=== PATIENT | female | born 1930 | race Caucasian/White ===

== ENCOUNTER 2021-07-05 15:08 | Emergency (ER) | payer OTHER ==
--- OUTSIDE RECORDS SUMMARY | 2021-07-05 15:12 | XMS REPORT | Continuity of Care Document ---
:1930 Author Organization [facility] t Address [address] [place] [address] [address]. [address] [place] [address] Care Team Providers Name Role Phone Chilo Jose Primary Care Physician STEPHEN, A Attending Clinician Unavailable Stephen BRINK, A Attending Clinician Doctor Unassigned, Name Attending Clinician Unavailable Pob, Lab Main Attending Clinician Unavailable Maxim OLIVARES Attending Clinician Unavailable CARLOTA Attending Clinician Unavailable STEPHEN, A Admitting Clinician Unavailable Stephen BRINK, A Admitting Clinician Payers Payer Name Policy Type Policy Number Effective Date Expiration Date S sarah [employer] MANAGED [id number] 2020 MEDICARE PPO-ELINOR 00:00:00 Problems Condition Condition Condition Status Onset Resolution Last Treating Co mments Source Name Details Category Date Date Treatment Clinician Date History of History of Problem Resolve Univers hypothyroi hypothyroi HL7.CCDAR2 d ity of dism dism [place] [facility] Osteoarthr Osteoarthr Problem Active U nivers osis, osis, HL7.CCDAR2 [place] primary[place] Physic i knee knee ans Prepatella Prepatella Problem Active U nivers r bursitis r bursitis HL7.CCDAR2 ity of of left of left [place] knee knee Physici ans Neuropathy Neuropathy Problem Active U nivers HL7.CCDAR2 ity of [place] [facility] Neuropathy Neuropathy Problem Active U nivers of right of right HL7.CCDAR2 it y of lower lower [place] extremity extremity Phys ici ans Allergies, Adverse Reactions, Alerts Allergy Allergy Status Severity Reaction(s) Onset Inactive Treating Comm ents Source Name Type Date Date Clinician PENICILL Drug Active Med Hives 2020-06 Univers INS Class 1-29 ity of 00:00: [place] 00 Medical Branch SULFA Drug Active Med Hives 2020-06 Univers (SULFONA Class 1-29 ity of MIDE 00:00: [place] ANTIBIOT 00 Medical ICS) Branch LATEX DRUG Active ITCHING 2020-06 Univers INGREDI 07-27 ity of 00:00: [place] 00 Medical Branch TETRACYC DRUG Active Hives 2020-06 Univers LINE INGREDI 07-27 ity of 00:00: [place] 00 Medical Branch Latex Propensi Active Itching 2020-06 Univers ty to 07-27 ity of adverse 00:00: [place] reaction 00 Medical s Branch Penicill Drug Active Hives 2020-06 Univers ins Allergy 07-27 ity of 00:00: [place] 00 Medical Branch Sulfa Propensi Active Hives 2020-06 Univers (Sulfona ty to 07-27 ity of mide adverse 00:00: [place] Antibiot reaction 00 Medica l ics) s Branch Tetracyc Propensi Active Hives 2020-06 Univer s line ty to 07-27 ity of adverse 00:00: [place] reaction 00 Medical s Branch Benadryl drug Active Univers allergy [place] of [place] [facility] Benadryl drug Active Univers CAPS allergy [place] [facility] Penicill drug Active Univers ins allergy [place] [facility] NO KNOWN Drug Active Univers ALLERGIE Class ity of S [facility] Sulfa drug Active Univers Drugs allergy [place] [facility] Tetracyc drug Active Univers lines allergy [place] [facility] Social History Social Habit Start Date Stop Date Quantity Comments Source Exposure to Not sure [facility] SARS-CoV-2 (event) Medica l Branch Tobacco use and 2021-05-27 2021-05-27 Never used [facility] exposure 00:00:00 00:00:00 Medical Branch Sex Ass[birth year] At [birth year] [facility] 00:00:00 00:00:00 Medical Branch Smoking Status Start Date Stop Date Source Unknown if ever smoked [facility] [place] Never smoker [facility] [place] Medications Ordered Filled Start Stop Current Ordering Indication Dosage Frequency Signature Comments Components Source Medication Medication Date Date Medication? Clinician (SIG) Name Name water for 2020-06 Yes PRN, Univers irrigation 2- Starting ity o f irrigation 21:04: on Wed [place] solution 00 05/29/21 at Medic al 1504, Branch Until Discontinu ed, Routine, Intra-op sodium 2020-06 Yes PRN, Univers chloride 2- Starting ity of (NS) 21:04: on Wed [place] injection 00 05/29/21 at Medi claribel 1504, Branch Until Discontinu ed, Routine, Intra-op neomycin-po 2020-06 Yes PRN, [facility] [place] [facility] lymyxin-dex 2- Starting ity of amethasone 21:04: on Wed [place] (MAXITROL) 00 05/29/21 at Med ical 3.5 1504, Branch mg/g-10,000 Until unit/g-0.1 Discontinu % ed, ophthalmic Routine, ointment Intra-op water for 2020-06- No PRN, Univers irrigation 2-05-30 Starting ity of irrigation 21:04: 00:30 [place] Wed [place] solution 00 :49 05/29/21 at Medic al 1504, Branch Until Thu05/29/21 at 1830, Routine, Intra-op sodium 2020-06- No PRN, Univers chloride 2-05-30 Starting ity of (NS) 21:04: 00:30 on Wed [place] injection 00 :49 05/29/21 at Medi claribel 1504, Branch Until Thu05/29/21 at 1830, Routine, Intra-op neomycin-po 2020-06- No PRN, [facility] [place] [facility] lymyxin-dex 2-05-30 Starting ity of amethasone 21:04: 00:30 [place] Wed [place] (MAXITROL) 00 :49 05/29/21 at Med ical 3.5 1504, Branch mg/g-10,000 Until Wed unit/g-0.1 05/29/21 at % 1830, ophthalmic Routine, ointment Intra-op Hyaluronida 2020-06 Yes PRN, Univer s se, Human 2- Starting ity of Recomb. 21:03: on Thu [place] (HYLENEX) 00 05/29/21 at [facility] claribel injection 1503, Branch Until Discontinu ed, Routine, Intra-op Hyaluronida 2020-06- No PRN, Unive rs se, Human 07-30 Starting ity o f Recomb. 21:03: 00:30 on Thu (HYLENEX) 00 :49 05/29/21 at Medi claribel injection 1503, Branch Until Thu05/29/21 at 1830, Routine, Intra-op eye block 2020-06 Yes PRN, Univers syringe 07-30 Starting ity o f mL 21:02: on Thu 00 05/29/21 at Medical 1502, Branch Until Discontinu ed, Intra-op EPINEPHrine 2020-06 Yes PRN, Univer s 1:1,000 (07-30 Starting ity o f mg/mL) 21:02: on Thu (ADRENALIN) 00 05/29/21 at Wy dical injection 1502, Branch Until Discontinu ed, Routine, Intra-op DUOVISC 2020-06 Yes PRN, Univers (DUOVISC 07-30 Starting ity of VISCO 21:02: on Thu ELASTIC) 3 00 05/29/21 at Med ical %-4 %(0.5 1502, Branch mL) 1 % Until (0.55 mL) Discontinu intraocular ed, injection Routine, Intra-op eye block 2020-06- No PRN, Univers syringe 11 07-30 Starting ity of mL 21:02: 00:30 on Thu 00 :49 05/29/21 at Medical 1502, Branch Until Thu05/29/21 at 1830, Intra-op EPINEPHrine 2020-06- No PRN, Unive rs 1:1,000 (07-30 Starting ity of mg/mL) 21:02: 00:30 on Thu (ADRENALIN) 00 :49 05/29/21 at Me dical injection 1502, Branch Until Thu05/29/21 at 1830, Routine, Intra-op DUOVISC 2020-06- No PRN, Univers (DUOVISC 07-30 Starting ity of VISCO 21:02: 00:30 on Thu ELASTIC) 3 00 :49 05/29/21 at Med ical %-4 %(0.5 1502, Branch mL) 1 % Until Wed (0.55 mL) 05/29/21 at intraocular 1830, injection Routine, Intra-op dexamethaso 2020-06 Yes PRN, Univer s ne 07-30 Starting ity of (DECADRON 21:01: on Wed [place] PHOSPHATE) 00 05/29/21 at [facility] ical injection 1501, Branch Until Discontinu ed, Routine, Intra-op dexamethaso 2020-06- No PRN, Unive rs ne 07-30 Starting ity of (DECADRON 21:01: 00:30 on Wed [place] PHOSPHATE) 00 :49 05/29/21 at Med ical injection 1501, Branch Until Thu05/29/21 at 1830, Routine, Intra-op ceFAZolin 2020-06 Yes PRN, Univers (ANCEF) 07-30 Starting ity of injection 20:34: on Wed [place] 00 05/29/21 at Medical 1434, Branch Until Discontinu ed, DIAMOND, Intra-op ceFAZolin 2020-06- No PRN, Univers (ANCEF) 07-30 Starting ity of injection 20:34: 00:30 on Wed [place] 00 :49 05/29/21 at Medical 1434, Branch Until Thu05/29/21 at 1830, DIAMOND, Intra-op carbachoL 2020-06 Yes PRN, Univers (MIOSTAT) 07-30 Starting ity of 0.01 % 20:33: on Thu [place] intraocular 00 05/29/21 at Wy dical injection 1433, Branch Until Discontinu ed, Routine, Intra-op balanced 2020-06 Yes PRN, Univers salt irrig 07-30 Starting ity o f soln comb1 20:33: on Thu [place] (BSS PLUS) 00 05/29/21 at [facility] ical ophthalmic 1433, Branch solution Until 500 mL bag Discontinu ed, Routine, Intra-op carbachoL 2020-06- No PRN, Univers (MIOSTAT) 07-30 Starting ity o f 0.01 % 20:33: 00:30 on Thu [place] intraocular 00 :49 05/29/21 at Wy dical injection 1433, Branch Until Thu05/29/21 at 1830, Routine, Intra-op balanced 2020-06- No PRN, Univers salt irrig 07-30 Starting ity of soln comb1 20:33: 00:30 [place] Wed [place] (BSS PLUS) 00 :49 05/29/21 at [facility] ica ophthalmic 1433, Branch solution Until Thu 500 mL bag 05/29/21 at 1830, Routine, Intra-op cyclopent 2020-06- No .5mL 0.5 mL, Univ ers 1%-tropic 07-30 Left Eye, ity of 1%-phenyl 19:15: 19:19 ONCE, 1 [place] 2.5%-ketor 00 :00 dose, On Medic al 0.5% Thu Branch (MYDRIATIC 05/29/21 at #5) 1315, ophthalmic Routine, solution DSU Pre-op syringe 0.5 mL lactated 2020-06- No 1000mL at 42 Unive rs ringers IV 07-30 mL/hr, ity of infusion 19:15: 19:19 1,000 mL, [place] 1,000 mL 00 :00 IV Medical Infusion, Branch ONCE, 1 dose, On Thu05/29/21 at 1315, Routine, DSU Pre-op cyclopent 2020-06- No .5mL 0.5 mL, Univ ers 1%-tropic 07-30 Left Eye, ity of 1%-phenyl 19:15: 19:19 ONCE, 1 [place] 2.5%-ketor 00 :00 dose, On Medic al 0.5% Thu Branch (MYDRIATIC 05/29/21 at #5) 1315, ophthalmic Routine, solution DSU Pre-op syringe 0.5 mL lactated 2020-06- No 1000mL at 42 Unive rs ringers IV 07-30 mL/hr, ity of infusion 19:15: 19:19 1,000 mL, Ken as 1,000 mL 00 :00 IV Medical Infusion, Branch ONCE, 1 dose, On Thu05/29/21 at 1315, Routine, DSU Pre-op Levothyroxi 2020-06 Yes Take by Un ronnie ne 88 mcg 2-01 mouth ity of capsule 16:30: every [place] [id number] morning. Medical Branch Levothyroxi 2020-06 Yes Take by Un ronnie ne 88 mcg 2-01 mouth ity of capsule 16:30: every [place] [address] morning. Medical Branch Levothyroxi 2020-06 Yes Take by Un ronnie ne 88 mcg 2-01 mouth ity of capsule 16:30: every [place] [address] morning. Medical Branch Clindamycin Clindamycin 2012-06 Yes YANE TAKE 2 Univers HCl - 300 HCl - 300 1-05 AMBROSIO Sargent CAPSULES 1 ity of MG Oral MG Oral 00:00: HOUR PRIOR [place] Capsule Capsule 00 TO DENTAL Phys ici APPOINTMEN ans T. Levothyroxi Levothyroxi Yes U nivers ne Sodium ne Sodium ity o f 88 MCG Oral 88 MCG Oral [place] Tablet Tablet Physici ans Flax OIL Flax OIL Yes Univers [facility] [facility] [place] [facility] ICaps Oral ICaps Oral Yes Uni vers Capsule Capsule ity of [facility] ans Ringers Ringers Yes Univers Irrigation Irrigation ity of [facility] Physici ans Barley Barley Yes Univers Grass POWD Grass POWD ity of [facility] ans Co Q 10 Co Q 10 Yes Univers CAPS CAPS ity of [facility] ans Vitamin D-3 Vitamin D-3 Yes U nivers TABS TABS ity of [facility] ans Fiber CAPS Fiber CAPS Yes Uni vers ity of [place] [facility] ans Calcium Calcium Yes Univers TABS TABS ity of [facility] ans Glucosamine Glucosamine Yes U nivers CAPS CAPS ity of [facility] ans Multiple Multiple Yes Univers Vitamins Vitamins ity of Oral Tablet Oral Tablet [place] Phys[place] ans Levo-T 88 Levo-T 88 Yes Unive rs MCG Oral MCG Oral ity of Tablet Tablet [place] [facility] ans Immunizations Ordered Filled Immunization Date Status Comments [facility] e Immunization Name Name SARS-COV-2 COVID-19 2021-04-19 Completed Unive rsity of PFIZER VACCINE 00:00:00 [place] [facility] SARS-COV-2 COVID-19 2021-04-19 Completed Unive rsity of PFIZER VACCINE 00:00:00 [facility] SARS-COV-2 COVID-19 2021-04-19 Completed Unive rsity of PFIZER VACCINE 00:00:00 [facility] SARS-COV-2 COVID-19 2020-08-23 Completed Unive rsity of PFIZER VACCINE 00:00:00 [facility] SARS-COV-2 COVID-19 2020-08-23 Completed Unive rsity of PFIZER VACCINE 00:00:00 [facility] SARS-COV-2 COVID-19 2020-08-23 Completed Unive rsity of PFIZER VACCINE 00:00:00 [facility] SARS-COV-2 COVID-19 2020-08-23 Completed Unive rsity of PFIZER VACCINE 00:00:00 [facility] SARS-COV-2 COVID-19 2020-07-24 Completed Unive rsity of PFIZER VACCINE 00:00:00 [facility] SARS-COV-2 COVID-19 2020-07-24 Completed Unive rsity of PFIZER VACCINE 00:00:00 [facility] SARS-COV-2 COVID-19 2020-07-24 Completed Unive rsity of PFIZER VACCINE 00:00:00 [facility] SARS-COV-2 COVID-19 2020-07-24 Completed Unive rsity of PFIZER VACCINE 00:00:00 [facility] Vital Signs Vital Name Observation Time Observation Value Comments Source Heart rate 2021-05-29 22:19:00 65 /min [facility] Respiratory rate 2021-05-29 22:19:00 25 /min Univ ersity of [facility] Oxygen saturation in 2021-05-29 22:19:00 100 /min [facility] Arterial blood by [facility] Pulse oximetry Branch Systolic blood 2021-05-29 22:16:00 179 mm[Hg] Univer sity of pressure [facility] Diastolic blood 2021-05-29 22:16:00 84 mm[Hg] Unive rsity of pressure [facility] Body temperature 2021-05-29 22:07:00 36.39 [facility] Body height 2021-05-27 16:11:00 152.4 cm [facility] Body weight 2021-05-27 16:11:00 57.7 kg [facility] BMI 2021-05-27 16:11:00 24.84 kg/m2 [facility] Systolic blood 2021-05-29 19:17:00 168 mm[Hg] Univer sity of pressure [facility] Diastolic blood 2021-05-29 19:17:00 63 mm[Hg] Unive rsity of pressure [facility] Heart rate 2021-05-29 19:17:00 74 /min [facility] Body temperature 2021-05-29 19:17:00 37.11 Radha [facility] Respiratory rate 2021-05-29 19:17:00 18 /min [facility] Oxygen saturation in 2021-05-29 19:17:00 100 /min [facility] Arterial blood by [facility] Pulse oximetry Branch Body height 2021-05-27 16:11:00 152.4 cm [facility] Body weight 2021-05-27 16:11:00 57.7 kg [facility] BMI 2021-05-27 16:11:00 24.84 kg/m2 [facility] Procedures Procedure Date / Time Performing Source Performed Clinician PHACOEMULSIFICATION OF 2021-05-29 John Mitchell [facility] CATARACT WITH INTRAOCULAR 21:28:00 Macario Olivares LENS IMPLANT DAY SURGERY - ADC 2021-05-29 Doctor Unassigned, [facility] 06:01:00 [place] [facility] NOTICE OF PRIVACY PRACTICES 2021-05-20 Doctor Unassigned, [facility] 23:10:40 [place] [facility] NOTICE OF PRIVACY PRACTICES 2021-05-20 Doctor Unassigned, [facility] 23:10:40 [place] [facility] CONSENT/REFUSAL FOR DIAGNOSIS 2021-05-20 Doctor Unassigned, [facility] AND TREATMENT 23:09:13 [place] [facility] CONSENT/REFUSAL FOR DIAGNOSIS 2021-05-20 Doctor Unassigned, [facility] AND TREATMENT 23:09:13 [place] [facility] ASSIGNMENT OF BENEFITS 2021-05-20 Doctor Unassigned, [facility] 23:08:49 [place] [facility] ASSIGNMENT OF BENEFITS 2021-05-20 Doctor Unassigned, [facility] 23:08:49 [place] [facility] PHYSICIAN ORDERS 2021-05-20 Doctor Unassigned, [facility] 06:01:00 [place] [facility] PHYSICIAN ORDERS 2021-05-20 Doctor Unassigned, [facility] 06:01:00 [place] [facility] EXTERNAL PROVIDER RECORDS 2021-05-14 Doctor Unassigned, [facility] 06:01:00 [place] [facility] EXTERNAL PROVIDER RECORDS 2021-05-14 Doctor Unassigned, [facility] 06:01:00 [place] [facility] History of Knee Arthroplasty Uni versity [facility] Physicians History of Hysterectomy [facility]i [facility] [place] [facility] History of Ankle Surgery [facility] [place] [facility] Encounters Start End Encounter Admission Attending Care Care Encounter Source Date/Time Date/Time Type Type Clinicians Facility Department ID 2021-05-29 2021-05-29 Outpatient R [facility] OPH [id number] Univers 13:03:00 16:30:00 JOHN ity of [facility] 2021-05-29 2021-05-29 Hospital [facility] [id number] Univers 13:03:00 16:30:00 Encounter John RICHARDSON [id number] ity of [facility] [id number] [place] [id number] [facility] 071 Branch 2021-05-29 2021-05-29 Surgery [facility] [id number] Univers 15:01:00 15:42:00 John RICHARDSON [id number] ity of [place] [id number] SURGICAL [id number] [facility] 020 Branch 2021-05-29 2021-05-29 Orders Doctor RJ [id number] Univers 00:00:00 00:00:00 Only Unassigned, YOSEF [id number] ity of [place] [facility] [id number] [place] as [id number] [facility] 009 Branch 2021-05-20 2021-05-20 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 2020-08-23 2020-08-23 Outpatient R [facility] [id number] Univers 14:20:00 14:20:[id number] [facility] 2020-08-23 2020-08-23 Outpatient R MARSHALL [facility] [id number] Univers 14:20:00 14:20:[address] [facility] 2020-08-16 2020-08-16 Outpatient R [facility] [id number] Univers 14:20:00 14:20:[id number] [facility] 2020-08-16 2020-08-16 Outpatient R MARSHALL [facility] [id number] Univers 14:20:00 14:20:[address] [facility] 2020-08-14 2020-08-14 Outpatient R MARSHALL [facility] [id number] Univers 14:20:00 14:20:[id number] [facility] 2020-07-24 2020-07-24 Outpatient R MARSHALL [facility] [id number] Univers 13:20:00 13:20:[address] [facility] 2018-05-26 2018-05-26 Appointmen GONZALO VAN [facility] [id number] Univers 10:30:00 10:30:00 t; FRANCHESKA VAN, Orthopedics ity of [place] [place] [facility] Physici ans 2016-07-30 2016-07-30 Appointmen GONZALO VAN [facility] [id number] Univers 14:30:00 14:30:00 t; FRANCHESKA VAN, ity of [place] [place] [facility] Physici ans Results Test Description Test Time Test Comments Results Result Sourc e Comments [U] XRAY KNEE 3 2018-05-26 Images Universit y of VWS LEFT [id number] 11:07:00 acquired, not [place] reported on Physicians this accession number.
--- NOTE | 2021-07-05 16:09 | RAD REPORT ---
EXAM DESCRIPTION: CT - Head Brain Wo Cont - 07/05/2021 4:01 pm CLINICAL HISTORY: HEADACHE COMPARISON: No comparisons TECHNIQUE: All CT scans are performed using dose optimization technique as appropriate and may inclu de automated exposure control or mA/KV adjustment according to patient size. FINDINGS: No intracranial hemorrhage, hydrocephalus or extra-axial fluid collection.No areas of brai n edema or evidence of midline shift. The paranasal sinuses and mastoids are clear. The calvarium is intact. IMPRESSION: No acute intracranial abnormality.
--- NOTE | 2021-07-05 16:30 | ER ---
Nurse's Notes [facility] Name: Radha Zamudio Age: 89 yrs Sex: Female : 1930 Arrival Date: 07/05/2021 Time: 15:26 Bed 12 Private MD: Kevin Woo V Diagnosis: Laceration Chin without foreign body;Abrasion face Presentation: 07/05 15:37 Chief complaint: Patient states: i didn't pepper picker my feet and i fell and hit the tw2 concrete. i was looking at some chalk walk on the sidewalk and it got me. i take a baby aspirin. NO LOC. 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 Coronavirus screen: At this time, the client does not indicate any symptoms associated with coronavirus-19. Ebola Screen: Patient denies travel to an Ebola-affected area in the 21 days before illness onset. Initial Sepsis Screen: Does the patient meet any 2 criteria? No. Patient's initial sepsis screen is negative. Does the patient have a suspected source of infection? No. Patient's initial sepsis screen is negative. Risk Assessment: Do you want to hurt yourself or someone else? Patient reports no desire to harm self or others. Onset of symptoms was July 05, 2021. 15:37 Method Of Arrival: Ambulatory tw2 15:37 Acuity: ILIANA 4 tw2 Triage Assessment: 15:44 General: Appears in no apparent distress. Behavior is calm, cooperative, appropriate tw2 for age. Pain: Complains of pain in face abrasions. Historical: - Allergies: 15:43 PENICILLINS; tw2 15:43 Sulfa (Sulfonamide Antibiotics); tw2 15:43 TETRACYCLINES; tw2 15:43 Latex, Natural Rubber; tw2 - Home Meds: 15:43 levothyroxine 88 mcg/mL soln 1 mL once daily [Active]; aspirin 81 mg Oral chew 1 tab tw2 twice a week [Active]; - PSHx: 15:43 left knee replacement; hysterectomy; tw2 - Immunization history:: Client reports receiving the 2nd dose of the Covid vaccine, Flu vaccine is up to date. - Social history:: Smoking status: Patient denies any tobacco usage or history of. Screenin:51 Abuse screen: Denies threats or abuse. Denies injuries from another. Nutritional 5 screening: No deficits noted. Tuberculosis screening: No symptoms or risk factors identified. Fall Risk None identified. Primary Survey: 15:50 NO uncontrolled hemorrhage observed. A: Airway: patent. Breathing/Chest: Respiratory [facility] pattern: regular, Respiratory effort: spontaneous, Breath sounds: clear, Chest inspection: symmetrical rise and fall of the chest. Circulation: Cardiac rhythm: Pulses: palpable right radial artery and left radial artery. Skin color: pink, Skin temperature: warm. Disability Alert. Exposure/Environment: A warming method has been applied: A warm blanket has been provided to the patient. Reassessment Airway Airway Patent Breathing/Chest Respiratory pattern Regular Circulation Heart rhythm Sinus rhythm Disability Alert. Assessment: 15:49 General: Appears in no apparent distress. uncomfortable, well groomed, well developed, jh5 well nourished, Behavior is calm, cooperative, appropriate for age. Cardiovascular: No deficits noted. Respiratory: No deficits noted. GI: No deficits noted. Vital Signs: 15:37 BP 161 / 58; Pulse 77; Resp 18; Temp 97.6(TE); Pulse Ox 100% on R/A; Pain 3/10; tw2 ED Course: 15:26 Patient arrived in ED. am2 15:29 Kevin Woo MD is Private Physician. am2 15:43 Triage completed. tw2 15:44 Arm band placed on. tw2 15:46 Mila Edwards, KHOA is Primary Nurse. 5 15:52 Mainor Dominguez PA is PHCP. jr8 15:52 Farzaneh Morgan MD is Attending Physician. jr8 15:52 Patient has correct armband on for positive identification. Call light in reach. Side 5 rails up X 1. 16:02 CT Head Brain wo Cont In Process Unspecified. EDMS 16:29 Kevin Woo MD is Referral Physician. jr8 Administered Medications: 15:53 Drug: Lidocaine (1 %) 5 mg {Note: given via MD.} Route: Infiltration; [facility] Outcome: 16:30 Discharge ordered by . jr 16:41 Patient left the ED. [facility] Signatures: Dispatcher [employer] EDMS Mainor Dominguez PA PA 8 Elana Aggarwal RN RN tw2 Chika Villarreal am2 Mila Edwards RN RN jh5
--- NOTE | 2021-07-05 16:30 | EDPHYS ---
Physician Documentation [facility] [place] Name: Radha Zamudio Age: 89 yrs Sex: Female : 1930 Arrival Date: 07/05/2021 Time: 15:26 Bed 12 Private MD: Kevin Woo V ED Physician Farzaneh Morgan HPI: 07/05 16:25 This 89 yrs old Female presents to ER via Ambulatory with complaints of Fall Injury, jr8 Abrasion(s) - facial. 16:25 Details of fall: The patient fell from an upright position, while standing. Onset: The jr8 symptoms/episode began/occurred acutely, today. Associated injuries: The patient sustained injury to the head. Severity of symptoms: At their worst the symptoms were mild, in the emergency department the symptoms are unchanged. The patient has not experienced similar symptoms in the past. The patient has not recently seen a physician. 16:26 Patient stated that she tripped while walking hitting her chin and cheek. Denies LOC. jr8 Complains of mild pain to left cheek and laceration to chin. Denies Headache, neck pain, or dizziness . Historical: - Allergies: 15:43 PENICILLINS; tw2 15:43 Sulfa (Sulfonamide Antibiotics); tw2 15:43 TETRACYCLINES; tw2 15:43 Latex, Natural Rubber; tw2 - Home Meds: 15:43 levothyroxine 88 mcg/mL soln 1 mL once daily [Active]; aspirin 81 mg Oral chew 1 tab tw2 twice a week [Active]; - PSHx: 15:43 left knee replacement; hysterectomy; tw2 - Immunization history:: Client reports receiving the 2nd dose of the Covid vaccine, Flu vaccine is up to date. - Social history:: Smoking status: Patient denies any tobacco usage or history of. ROS: 16:26 Neck: Negative for injury, pain, and swelling, Cardiovascular: Negative for chest pain, jr8 palpitations, and edema, Respiratory: Negative for shortness of breath, cough, wheezing, and pleuritic chest pain, Abdomen/GI: Negative for abdominal pain, nausea, vomiting, diarrhea, and constipation, Back: Negative for injury and pain, MS/Extremity: Negative for injury and deformity, Neuro: Negative for headache, weakness, numbness, tingling, and seizure. 16:26 Skin: Positive for abrasion(s), laceration(s). Exam: 16:26 Constitutional: This is a well developed, well nourished patient who is awake, alert, jr8 and in no acute distress. Eyes: Pupils equal round and reactive to light, extra-ocular motions intact. Lids and lashes normal. Conjunctiva and sclera are non-icteric and not injected. Cornea within normal limits. Periorbital areas with no swelling, redness, or edema. ENT: Nares patent. No nasal discharge, no septal abnormalities noted. Tympanic membranes are normal and external auditory canals are clear. Oropharynx with no redness, swelling, or masses, exudates, or evidence of obstruction, uvula midline. Mucous membranes moist. Neck: Trachea midline, no thyromegaly or masses palpated, and no cervical lymphadenopathy. Supple, full range of motion without nuchal rigidity, or vertebral point tenderness. No Meningismus. Chest/axilla: Normal chest wall appearance and motion. Nontender with no deformity. No lesions are appreciated. Cardiovascular: Regular rate and rhythm with a normal S1 and S2. No gallops, murmurs, or rubs. Normal PMI, no JVD. No pulse deficits. Respiratory: Lungs have equal breath sounds bilaterally, clear to auscultation and percussion. No rales, rhonchi or wheezes noted. No increased work of breathing, no retractions or nasal flaring. Abdomen/GI: Soft, non-tender, with normal bowel sounds. No distension or tympany. No guarding or rebound. No evidence of tenderness throughout. Back: No spinal tenderness. No costovertebral tenderness. Full range of motion. Skin: small abrasions to bilateral anterior knees noted. No bleeding or laceration present MS/ Extremity: Pulses equal, no cyanosis. Neurovascular intact. Full, normal range of motion. Neuro: Awake and alert, GCS 15, oriented to person, place, time, and situation. Cranial nerves II-XII grossly intact. Motor strength 5/5 in all extremities. Sensory grossly intact. Cerebellar exam normal. Normal gait. 16:26 Head/face: Patient has small abrasion to chin and left cheek. 2 cm irregular shaped laceration noted to submental region. No active bleeding and no FB noted . Vital Signs: 15:37 BP 161 / 58; Pulse 77; Resp 18; Temp 97.6(TE); Pulse Ox 100% on R/A; Pain 3/10; tw2 Laceration: 16:26 Wound Repair of 2cm ( 0.8in ) subcutaneous laceration to chin. Irregularly shaped.. jr8 Distal neuro/vascular/tendon intact. Anesthesia: Local anesthetic administered with 2 mls of 1% lidocaine. Wound prep: Moderate cleansing with betadine, Wound explored moderately. Skin closed with 2 4-0 Prolene using interrupted sutures and sterile technique. Patient tolerated well. MDM: 15:52 Patient medically screened. jr8 16:26 Data reviewed: vital signs, nurses notes, radiologic studies, CT scan. Data jr8 interpreted: Pulse oximetry: on room air is 100 %. Interpretation: normal. Counseling: I had a detailed discussion with the patient and/or guardian regarding: the historical points, exam findings, and any diagnostic results supporting the discharge/admit diagnosis, radiology results, the need for outpatient follow up, a family practitioner, to return to the emergency department if symptoms worsen or persist or if there are any questions or concerns that arise at home. 07/05 15:52 Order name: CT Head Brain wo Cont; Complete Time: 16:10 jr8 07/05 15:53 Order name: Dressing - Wound; Complete Time: 15:55 jr8 07/05 15:53 Order name: Gloves, Sterile; Complete Time: 15:55 jr8 07/05 15:53 Order name: Prolene, Sutures; Complete Time: 15:55 jr8 07/05 15:53 Order name: Setup Suture Tray; Complete Time: 15:55 jr Administered Medications: 15:53 Drug: Lidocaine (1 %) 5 mg {Note: given via MD.} Route: Infiltration; jh5 Disposition Summary: 07/05/21 16:30 Discharge Ordered Location: Home jr8 Problem: new jr8 Symptoms: have improved jr8 Condition: Stable jr8 Diagnosis - Laceration Chin without foreign body jr8 - Abrasion face jr8 Followup: jr8 - With: Kevin Woo MD - When: 1 week - Reason: Wound Recheck, Recheck today's complaints, Continuance of care, Staple/Suture removal, Re-evaluation by your physician Discharge Instructions: - Discharge Summary Sheet jr8 - Abrasion jr8 - Facial Laceration jr8 Forms: - Medication Reconciliation Form jr8 - Thank You Letter jr8 - Antibiotic Education jr8 - Prescription Opioid Use jr8 Addendum: 07/07/2021 16:20 Co-signature as Attending Physician, Farzaneh Morgan MD I agree with the assessment and s p3 plan of care. Signatures: Dispatcher [employer] [facility] Mainor Dominguez PA PA jr8 Elana Aggarwal RN RN tw2 Farzaneh Morgan MD MD sp3 Mila Edwards RN RN jh5
[2021-07-05 16:49] VITALS: BP 161/58; TEMP 97.6; O2SAT 100
== END 2021-07-05 16:41 | disposition home or self-care (01) ==
LOC: ER 15:08
PROC: 0JQ10ZZ Repair Face Subcutaneous Tissue and Fascia, Open Approach (ICD-10-PCS; principal; 2021-07-05)
DX: S01.81XA Laceration without foreign body of other part of head, initial encounter (principal); W01.0XXA Fall on same level from slipping, tripping and stumbling without subsequent striking against object, initial encounter; Y93.89 Activity, other specified; Y92.9 Unspecified place or not applicable; Z88.0 Allergy status to penicillin; Z88.2 Allergy status to sulfonamides; Z88.3 Allergy status to other anti-infective agents; Z91.040 Latex allergy status
CPT/HCPCS: 70450; 99283

== ENCOUNTER 2021-07-22 17:44 | Emergency (ER) | payer OTHER ==
--- OUTSIDE RECORDS SUMMARY | 2021-07-22 17:48 | XMS REPORT | Continuity of Care Document ---
:1930 Author Organization [facility] t Address [address] [place] [address] [address]. [address] [place] [address] Care Team Providers Name Role Phone Chilo [...] Date Expiration Date S sarah [employer] MANAGED [id number] 2020 MEDICARE PPO-ELINOR 00:00:00 Problems Condition Condition [...] Benadryl drug Active Univers allergy [facility]y of [place] [facility] Benadryl drug Active Univers CAPS allergy [facility] [place] [facility] Penicill drug Active Univers ins allergy ity of [place] [facility] NO KNOWN Drug Active Univers ALLERGIE Class ity of S [facility] Sulfa drug Active Univers Drugs allergy ity of [place] [facility] Tetracyc drug Active Univers lines allergy ity of [place] [facility] Social History Social Habit Start Date Stop Date Quantity Comments Source Exposure to Not sure [facility] SARS-CoV-2 (event) Medica l Branch Tobacco use and 2021-05-27 2021-05-27 Never used [facility] exposure 00:00:00 00:00:00 Medical Branch Sex Ass[birth year] [facility] 00:00:00 00:00:00 Medical Branch Smoking Status Start Date Stop Date Source Unknown if ever smoked [facility] [place] Never smoker [facility] [place] Medications Ordered Filled Start Stop Current Ordering [...] ed, Routine, Intra-op neomycin-po 2020-06 [facility]- Starting ity of amethasone [...] 1830, Routine, Intra-op neomycin-po 2020-06- No [facility] 2-05-30 [place] of ameth[place] 21:04[place] ([place]ITROL[place] 00 :49 05/29/21 at Med ical 3.5 1504, Branch mg/g-10,000 Until Wed unit/g-0.1 05/29/21 at % 1830, ophthalmic Routine, ointment Intra-op Hyaluronida 2020-06 Yes PRN, Univer s se, Human 2- Starting ity of Recomb. 21:03: on Thu [place] (HYLENEX) 00 05/29/21 at [facility] clariebl injection 1503, Branch Until Discontinu ed, Routine, [...] 21:02: on Thu (ADRENALIN) 00 05/29/21 at Pa dical injection 1502, Branch Until Discontinu ed, [...] on Wed [place] PHOSPHATE) 00 05/29/21 at [facility] ical injection 1501, Branch Until Discontinu ed, [...] on Thu [place] intraocular 00 05/29/21 at Pa dical injection 1433, Branch Until Discontinu ed, Routine, Intra-op balanced 2020-06 Yes PRN, Univers salt irrig 07-30 Starting ity o f soln comb1 20:33: on Thu [place] (BSS PLUS) 00 05/29/21 at [facility] ical ophthalmic 1433, Branch solution Until 500 mL bag Discontinu ed, Routine, Intra-op carbachoL 2020-06- No PRN, Univers (MIOSTAT) 07-30 Starting ity o f 0.01 % 20:33: 00:30 on Thu [place] intraocular 00 :49 05/29/21 at Pa dical injection 1433, Branch Until Thu05/29/21 at 1830, Routine, Intra-op balanced 2020-06- No PRN, Univers salt irrig 07-30 Starting ity of soln comb1 20:33: 00:30 [place] Wed [place] (BSS PLUS) 00 :49 05/29/21 at [facility] ica ophthalmic 1433, Branch solution Until Thu [...] 2-01 mouth ity of capsule 16:30: every [place] [id number] morning. Medical Branch Levothyroxi 2020-06 Yes Take by Un ronnie ne 88 mcg 2-01 mouth ity of capsule 16:30: every [place] [address] morning. Medical Branch Levothyroxi 2020-06 Yes Take by Un ronnie ne 88 mcg 2-01 mouth ity of capsule 16:30: every [place] [address] morning. Medical Branch Clindamycin Clindamycin 2012-06 Yes [...] OIL Flax OIL Yes Univers [facility] [place] [facility] ICaps Oral ICaps Oral Yes Uni vers Capsule Capsule ity of [facility] ans [place] Yes Univers Irrigation Irrigation ity of [facility] Physici ans Barley Barley Yes Univers Grass POWD Grass POWD ity of [facility] ans Co Q 10 Co Q 10 Yes Univers CAPS CAPS ity of [facility] ans Vitamin D-3 Vitamin D-3 Yes U nivers TABS TABS ity of [facility] ans Fiber CAPS Fiber CAPS Yes Uni vers ity of [facility] ans Calcium Calcium Yes Univers TABS TABS ity of [facility] ans Glucosamine Glucosamine Yes U nivers CAPS CAPS ity of [facility] ans Multiple Multiple Yes Univers Vitamins Vitamins ity of Oral Tablet Oral Tablet [place] [facility] ans Levo-T 88 Levo-T 88 Yes Unive rs MCG Oral MCG Oral ity of Tablet Tablet [place] [facility] Immunizations Ordered Filled Immunization Date Status Comments [facility] e Immunization Name Name SARS-COV-2 COVID-19 2021-04-19 Completed Unive rsity of PFIZER VACCINE 00:00:00 [facility] SARS-COV-2 COVID-19 2021-04-19 Completed Unive rsity of PFIZER VACCINE 00:00:00 [facility] SARS-COV-2 COVID-19 2021-04-19 Completed Unive rsity of PFIZER VACCINE 00:00:00 [facility] SARS-COV-2 COVID-19 2020-08-23 Completed Unive rsity of PFIZER VACCINE 00:00:00 [facility] SARS-COV-2 COVID-19 2020-08-23 Completed Unive rsity of PFIZER VACCINE 00:00:00 [facility] SARS-COV-2 COVID-19 2020-08-23 Completed Unive rsity of PFIZER VACCINE 00:00:00 [facility] SARS-COV-2 COVID-19 2020-08-23 Completed Unive rsity of PFIZER VACCINE 00:00:00 [facility] SARS-COV-2 COVID-19 2020-07-24 Completed Unive rsity of PFIZER VACCINE 00:00:00 [facility] SARS-COV-2 COVID-19 2020-07-24 Completed Unive rsity of PFIZER VACCINE 00:00:00 [facility] SARS-COV-2 COVID-19 2020-07-24 Completed Unive rsity of PFIZER VACCINE 00:00:00 [facility] SARS-COV-2 COVID-19 2020-07-24 Completed Unive rsity of PFIZER VACCINE 00:00:00 [facility] Vital Signs Vital Name Observation Time Observation Value Comments Source Heart rate 2021-05-29 22:19:00 65 /min [facility] Respiratory rate 2021-05-29 22:19:00 25 /min Univ ersity of [facility] Oxygen saturation in 2021-05-29 22:19:00 100 /min [facility] Arterial blood by [facility] Pulse oximetry Branch Systolic blood 2021-05-29 22:16:00 179 mm[Hg] Univer sity of pressure [facility] Diastolic blood 2021-05-29 22:16:00 84 mm[Hg] Unive rsity of pressure [facility] Body temperature 2021-05-29 22:07:00 36.39 [facility] [place] [facility] height 2021-05-27 16:11:00 152.4 cm [facility] Body weight 2021-05-27 16:11:00 57.7 kg [facility] BMI 2021-05-27 16:11:00 24.84 kg/m2 [facility] Systolic blood 2021-05-29 19:17:00 168 mm[Hg] Univer sity of pressure [facility] Diastolic blood 2021-05-29 19:17:00 63 mm[Hg] Unive rsity of pressure [facility] Heart rate 2021-05-29 19:17:00 74 /min [facility] Body temperature 2021-05-29 19:17:00 37.11 Radha [facility] Respiratory rate 2021-05-29 19:17:00 18 /min [facility] Oxygen saturation in 2021-05-29 19:17:00 100 /min [facility] Arterial blood by [facility] Pulse oximetry Branch Body height 2021-05-27 16:11:00 152.4 cm [facility] Body weight 2021-05-27 16:11:00 57.7 kg [facility] BMI 2021-05-27 16:11:00 24.84 kg/m2 [facility] Procedures Procedure Date / Time Performing Source Performed Clinician PHACOEMULSIFICATION OF 2021-05-29 John Mitchell [facility] CATARACT WITH INTRAOCULAR 21:28:00 Macario Olivares LENS IMPLANT DAY SURGERY - ADC 2021-05-29 [facility] 06:01:00 [place] [facility] NOTICE OF PRIVACY PRACTICES 2021-05-20 Doctor Unassigned, [facility] 23:10:40 [facility] NOTICE OF PRIVACY PRACTICES 2021-05-20 Doctor Unassigned, [facility] 23:10:40 [facility] CONSENT/REFUSAL FOR DIAGNOSIS 2021-05-20 [facility] 23:09:13 [facility] [facility] CONSENT/REFUSAL FOR DIAGNOSIS 2021-05-20 Doctor [facility]ass[facility] 23:09:13 [facility] ASSIGNMENT OF BENEFITS 2021-05-20 Doctor Unassigned, [facility] 23:08:49 [facility] ASSIGNMENT OF BENEFITS 2021-05-20 Doctor Unassigned, [facility] 23:08:49 [facility] PHYSICIAN ORDERS 2021-05-20 Doctor Unassigned, [facility] 06:01:00 [facility] PHYSICIAN ORDERS 2021-05-20 Doctor Unassigned, [facility] 06:01:00 [facility] EXTERNAL PROVIDER RECORDS 2021-05-14 Doctor Unassigned, [facility] 06:01:00 [place] [facility] EXTERNAL PROVIDER RECORDS 2021-05-14 Doctor Unassigned, [facility] 06:01:00 [place] [facility] History of Knee Arthroplasty Uni versity [facility] History of Hysterectomy Universi ty [facility] [place] [facility] History of Ankle Surgery [facility] [place] [facility] Encounters Start End Encounter Admission Attending Care Care Encounter Source Date/Time Date/Time Type Type Clinicians Facility Department ID 2021-05-29 2021-05-[address] [facility] OPH [id number] Univers 13:03:00 16:30:00 JOHN ity of [facility] 2021-05-29 2021-05-29 Hospital [facility] [id number] Univers 13:03:00 16:30:00 Encounter John RICHARDSON [id number] [facility] [id number] [id number] [facility] 071 Branch 2021-05-29 2021-05-29 Surgery [facility] [id number] Univers 15:01:00 15:42:00 John RICHARDSON [id number] ity of [id number] [id number] [facility] 020 Branch 2021-05-29 2021-05-29 Orders Doctor RJ [id number] Univers 00:00:00 00:00:00 Only Unassigned, YOSEF [id number] ity of [place] [facility] [id number] Ken as [id number] [facility] 009 Branch 2021-05-20 2021-05-20 Batch Freezer Verna, [facility] [id number] Univers 17:06:10 17:21:10 Visit StephenJohn [id number] [facility] [id number] PROFESSIO [id number] Pa dical [facility] 353 Branch [facility] 2021-05-20 2021-05-20 Outpatient R [facility] [id number] Univers 16:15:00 16:15:00 [id number] ity of [facility] 2021-05-20 2021-05-20 Outpatient R [facility] [id number] Univers 16:15:00 16:15:00 JOHN [facility] [place] [facility] 2020-08-23 2020-08-23 Outpatient R [facility] [id number] Univers 14:20:00 14:20:00 [id number] [facility] [place] [facility] 2020-08-23 2020-08-23 Outpatient R MARSHALL [facility] [id number] Univers 14:20:00 14:20:00 ALEIDA [facility] [place] [facility] 2020-08-16 2020-08-16 Outpatient R [facility] [id number] Univers 14:20:00 14:20:00 [id number] [facility] [place] [facility] 2020-08-16 2020-08-16 Outpatient R MARSHALL [facility] [id number] Univers 14:20:00 14:20:00 ALEIDA [facility] [place] [facility] 2020-08-14 2020-08-14 Outpatient R MARSHALL [facility] [id number] Univers 14:20:00 14:20:00 ALEIDA [id number] [facility] [place] [facility] 2020-07-24 2020-07-24 Outpatient R MARSHALL [facility] [id number] Univers 13:20:00 13:20:00 ALEIDA [facility] [place] [facility] 2018-05-26 2018-05-26 Appointmen GONZALO VAN [facility] [id number] Univers 10:30:00 10:30:00 t; FRANCHESKA VAN, Orthopedics ity of [place] [place] [facility] 2016-07-30 2016-07-30 Appointmen GONZALO VAN RUST [id number] Univers 14:30:00 14:30:00 t; FRANCHESKA VAN, ity of [place] [place] [facility] ans Results Test Description Test Time Test Comments Results Result Sourc e Comments [U] XRAY KNEE 3 2018-05-26 Images Universit y of VWS LEFT [id number] 11:07:00 acquired, not [place] reported on Physicians this accession number.
[2021-07-22 20:31] LABS: Absolute Lymphocytes (CBC) 1.3 K/uL (0.7-4.9); Lymphocytes % 19.3 % (15.3-44.8); MPV 7.3 fL (7.6-11.3); RBC Red Blood Cell Count 3.57 M/uL (3.86-4.86)
[2021-07-22 20:38] LABS: BUN Blood Urea Nitrogen 13 mg/dL (7-18); Bicarbonate 25 mmol/L (21-32); Lipase 144 U/L (73-393); Potassium 4.4 mmol/L (3.5-5.1); Sodium Level 135 mmol/L (136-145)
[2021-07-22 20:50] LABS: ALT/SGPT 18 U/L (12-78); AST/SGOT 20 U/L (15-37); Alkaline Phosphatase 79 U/L (45-117); Bilirubin Direct < 0.1 mg/dL (0-0.2); Bilirubin Total 0.3 mg/dL (0.2-1.0); Glucose Level 93 mg/dL (74-106); Protein, Total 7.2 g/dL (6.4-8.2)
--- NOTE | 2021-07-22 20:52 | RAD REPORT ---
EXAM DESCRIPTION: CT - Head Brain Wo Cont - 07/22/2021 8:03 pm CLINICAL HISTORY: HEADACHE COMPARISON: Head Brain Wo Cont dated 07/05/2021 TECHNIQUE: Axial 5 mm thick images of the head were obtained without IV contrast. All CT scans are performed using dose optimization technique as appropriate and may include automated exposure control or mA/KV adjustment according to patient size. FINDINGS: No intracranial hemorrhage, mass, edema or shift of mid-line structures. No acute cortical based infarction changes seen. No abnormal extra-axial fluid collections. Ventricles are normal. Atr ophy changes are minimal. No significant change from short interval July 05 study. Mastoid air cells and visualized portions of the paranasal sinuses are clear. No acute bony findings. IMPRESSION: Negative non-contrast CT head examination. No significant change from July 05.
--- NOTE | 2021-07-22 20:56 | RAD REPORT ---
EXAM DESCRIPTION: CT - Abdomen Pelvis W Contrast - 07/22/2021 8:08 pm CLINICAL HISTORY: ABD PAIN COMPARISON: No comparisons TECHNIQUE: Biphasic, helical CT imaging of the abdomen and pelvis was performed following 100 ml non -ionic IV contrast. No oral contrast administered. All CT scans are performed using dose optimization technique as appropriate and may include automated exposure control or mA/KV adjustment according to patient size. FINDINGS: No suspicious findings in the lung bases. The liver, spleen, and pancreas show no suspicious findings. Gallbladder and biliary tree are also wi thout suspicious finding. Symmetric renal function is seen with no hydronephrosis or suspicious renal mass. No pyelonephritis o r acute parenchymal process. No bladder abnormalities. No adrenal abnormalities. Uterus appears be ab sent. Ovaries are absent or atrophic. No adnexal abnormality. No gastric wall thickening or mass identifiable. No acute small bowel finding. There is a large stool volume present that fills but does not dilate the majority of the colon. Sigmoid colon is tortuous. There is diverticulosis without diverticulitis. No appendicitis findings. No free air, free fluid or inflammatory stranding. No hernia, mass or bulky lymphadenopathy. Prominent lumbar spine degenerative changes are present. No acute or pathologic bone process seen. IMPRESSION: Contrast enhanced CT abdomen and pelvis showing no acute or emergent finding. Nonacute findings detailed in the body of the report.
--- NOTE | 2021-07-22 21:55 | ER ---
Nurse's Notes [facility] Name: Radha Zamudio Age: 89 yrs Sex: Female : 1930 Arrival Date: 07/22/2021 Time: 17:49 Bed 10 Private MD: Kevin Woo V Diagnosis: Essential (primary) hypertension;Headache;Abdominal pain, unspecified Presentation: 07/22 18:02 Chief complaint: Patient states: "I have been having a high blood pressure for a couple jd3 of days and giving me some off and on headaches.". Coronavirus screen: At this time, the client does not indicate any symptoms associated with coronavirus-19. Ebola Screen: No symptoms or risks identified at this time. Initial Sepsis Screen: Does the patient meet any 2 criteria? No. Patient's initial sepsis screen is negative. Does the patient have a suspected source of infection? No. Patient's initial sepsis screen is negative. Risk Assessment: Do you want to hurt yourself or someone else? Patient reports no desire to harm self or others. Onset of symptoms was July 20, 2021. 18:02 Method Of Arrival: Ambulatory jd3 18:02 Acuity: ILIANA 3 jd3 Triage Assessment: 20:23 Headache History: The patient has had previous headaches. General: Appears in no jh5 apparent distress. uncomfortable, well groomed, well developed, well nourished, Behavior is calm, cooperative, appropriate for age. Pain: Pain currently is 3 out of 10 on a pain scale. Pain: Pain began gradually, Also complains of no other associated symptoms. Neuro: No deficits noted. Historical: - Allergies: 18:04 Latex, Natural Rubber; jd3 18:04 PENICILLINS; jd3 18:04 TETRACYCLINES; jd3 18:04 Sulfa (Sulfonamide Antibiotics); jd3 - PSHx: 18:04 hysterectomy; Left knee replacement; jd3 - Immunization history:: Adult Immunizations up to date. - Social history:: Smoking status: Patient denies any tobacco usage or history of. Screenin:22 Abuse screen: Denies threats or abuse. Denies injuries from another. Nutritional jh5 screening: No deficits noted. Tuberculosis screening: No symptoms or risk factors identified. Fall Risk None identified. Assessment: 19:28 General: sarina, son [phone]. tw5 21:10 Reassessment: Patient and/or family updated on plan of care and expected duration. Pain as6 level reassessed. Patient is alert, oriented x 3, equal unlabored respirations, skin warm/dry/pink. Patient states symptoms have improved. Vital Signs: 18:04 BP 191 / 69; Pulse 68; Resp 18 S; Temp 97.9(TE); Pulse Ox 99% on R/A; Weight 58.97 kg jd3 (R); Height 5 ft. 1 in. (154.94 cm) (R); Pain 7/10; 21:10 BP 164 / 71; Pulse 63; Resp 18 S; Pulse Ox 97% on R/A; as6 18:04 Body Mass Index 24.56 (58.97 kg, 154.94 cm) [facility] ED Course: 17:49 Patient arrived in ED. mr 17:49 Kevin Woo MD is Private Physician. mr 18:04 Triage completed. jd3 18:05 Arm band placed on. jd3 18:42 [facility] pm1 18:42 Gus Owusu MD is Attending Physician. pm1 19:27 Mila Edwards RN is Primary Nurse. jh5 20:04 CT Head Brain wo Cont In Process Unspecified. EDMS 20:09 CT Abd/Pelvis - IV Contrast Only In Process Unspecified. EDMS 20:22 Inserted saline lock: 20 gauge in right antecubital area, using aseptic technique. jh5 20:23 No provider procedures requiring assistance completed. 5 22:26 Bed in low position. Call light in reach. as6 22:26 IV discontinued, intact, bleeding controlled, No redness/swelling at site. Pressure as6 dressing applied. Administered Medications: No medications were administered Outcome: 21:53 Discharge ordered by MD. pm1 22:26 Discharged to home ambulatory. as6 22:26 Condition: stable 22:26 Discharge instructions given to patient, Instructed on discharge instructions, follow up and referral plans. Demonstrated understanding of instructions, follow-up care. 22:26 Patient left the ED. as6 Signatures: Dispatcher [employer] [facility] [place] mr Jt Hernandez, JULIUS HEEL COVERER MACHINE OPERATOR pm1 Jaleel Moran RN RN jChel Cade tw5 Mila Edwards, RN RN jh5 Jabari Aguilar, RN RN as6
--- NOTE | 2021-07-22 21:55 | EDPHYS ---
Physician Documentation [facility] Name: Radha Zamudio Age: 89 yrs Sex: Female : 1930 Arrival Date: 07/22/2021 Time: 17:49 Bed 10 Private MD: Kevin Woo V ED Physician Gus Owusu HPI: 07/22 19:47 This 89 yrs old Female presents to ER via Ambulatory with complaints of High Blood pm1 Pressure, Headache. 19:47 The patient has elevated blood pressure and discovered this at home, with a home pm1 device. Onset: The symptoms/episode began/occurred 1 week(s) ago. Modifying factors: The symptoms are aggravated by nothing, The symptoms are alleviated by Nothing. Associated signs and symptoms: Pertinent positives: on and off headache. Patient report chin laceration from fall from standing on 07/05, Pertinent negatives: chest pain, dizziness, nausea, vomiting, weakness, shortness of breath. patient denies history of HTN. Patient reports 1 week of abdominal bloating, indigestion, and burping. Historical: - Allergies: 18:04 Latex, Natural Rubber; jd3 18:04 PENICILLINS; jd3 18:04 TETRACYCLINES; jd3 18:04 Sulfa (Sulfonamide Antibiotics); jd3 - PSHx: 18:04 hysterectomy; Left knee replacement; jd3 - Immunization history:: Adult Immunizations up to date. - Social history:: Smoking status: Patient denies any tobacco usage or history of. ROS: 19:47 Constitutional: Negative for fever, chills, and weight loss, Cardiovascular: Negative pm1 for chest pain, palpitations, and edema, Respiratory: Negative for shortness of breath, cough, wheezing, and pleuritic chest pain. 19:47 MS/Extremity: Negative for injury and deformity, Skin: Negative for injury, rash, and discoloration. 19:47 Abdomen/GI: Positive for abdominal pain, Negative for nausea, vomiting, and diarrhea, constipation. 19:47 Neuro: Positive for headache, Negative for dizziness, numbness, tingling, weakness. 19:47 All other systems are negative. Exam: 19:47 Constitutional: This is a well developed, well nourished patient who is awake, alert, pm1 and in no acute distress. Head/Face: Normocephalic, atraumatic. 19:47 Back: No spinal tenderness. No costovertebral tenderness. Full range of motion. Skin: Warm, dry with normal turgor. Normal color with no rashes, no lesions, and no evidence of cellulitis. MS/ Extremity: Pulses equal, no cyanosis. Neurovascular intact. Full, normal range of motion. 19:47 Eyes: Exam is negative for acute changes, Periorbital structures: appear normal, Extraocular movements: no acute changes. 19:47 ENT: Exam is negative for acute changes, Mouth: no acute changes, Lips: normal, moist, Oral mucosa: normal, pink and intact, moist. 19:47 Neck: Exam negative for acute changes, External neck: no acute changes, ROM/movement: no acute changes. 19:47 Cardiovascular: Exam negative for acute changes, Rate: normal, Rhythm: regular, Pulses: no pulse deficits are appreciated, Heart sounds: normal, normal S1and S2. 19:47 Respiratory: Exam negative for acute changes, respiratory distress, shortness of breath, Breath sounds: are clear throughout. 19:47 Abdomen/GI: Inspection: abdomen appears normal, Palpation: soft, in all quadrants, mild abdominal tenderness, in the epigastric area. 19:47 Neuro: Exam negative for acute changes, Orientation: is normal, Mentation: is normal, Motor: is normal, moves all fours, Sensation: is normal, no obvious gross deficits. Vital Signs: 18:04 BP 191 / 69; Pulse 68; Resp 18 S; Temp 97.9(TE); Pulse Ox 99% on R/A; Weight 58.97 kg jd3 (R); Height 5 ft. 1 in. (154.94 cm) (R); Pain 7/10; 21:10 BP 164 / 71; Pulse 63; Resp 18 S; Pulse Ox 97% on R/A; as6 18:04 Body Mass Index 24.56 (58.97 kg, 154.94 cm) jd3 MDM: 18:58 Patient medically screened. pm1 21:52 Data reviewed: vital signs. Data interpreted: Pulse oximetry: on room air is 97 %. pm1 Interpretation: normal. 21:52 Counseling: I had a detailed discussion with the patient and/or guardian regarding: the pm1 historical points, exam findings, and any diagnostic results supporting the discharge/admit diagnosis, lab results, radiology results, the need for outpatient follow up, to return to the emergency department if symptoms worsen or persist or if there are any questions or concerns that arise at home. 07/22 19:45 Order name: Basic Metabolic Panel; Complete Time: 21:14 pm1 07/22 19:45 Order name: CBC with Diff; Complete Time: 21:14 pm1 07/22 18:58 Order name: CT Head Brain wo Cont; Complete Time: 21:14 pm1 07/22 19:45 Order name: Hepatic Function; Complete Time: 21:14 pm1 07/22 19:45 Order name: Lipase; Complete Time: 21:14 pm1 07/22 19:45 Order name: CT Abd/Pelvis - IV Contrast Only; Complete Time: 21:14 pm1 07/22 19:45 Order name: IV Saline Lock; Complete Time: 19:52 pm1 07/22 19:45 Order name: Labs collected and sent; Complete Time: 19:52 pm1 Administered Medications: No medications were administered Disposition: 07/23 09:01 Co-signature as Attending Physician, Gus Owusu MD I agree with the assessment and kdr plan of care. Disposition Summary: 07/22/21 21:53 Discharge Ordered Location: Home pm1 Problem: new pm1 Symptoms: have improved pm1 Condition: Stable pm1 Diagnosis - Essential (primary) hypertension pm1 - Headache pm1 - Abdominal pain, unspecified pm1 Discharge Instructions: - Discharge Summary Sheet pm1 - Abdominal Pain, Adult pm1 - General Headache Without Cause pm1 - Hypertension, Adult pm1 - How to Take Your Blood Pressure, Myfy-me-Tlds pm1 - DASH Eating Plan pm1 - Managing Your Hypertension pm1 Forms: - Medication Reconciliation Form pm1 - Thank You Letter pm1 - Antibiotic Education pm1 - Prescription Opioid Use pm1 Signatures: Dispatcher [employer] EDGus Mahmood MD MD kdr Marinas, Patrick, NP [employer] pm1 Jaleel Moran RN RN jd3
[2021-07-23 03:24] VITALS: TEMP 97.9
[2021-07-23 03:26] VITALS: BP 164/71; O2SAT 97
== END 2021-07-22 22:26 | disposition home or self-care (01) ==
LOC: ER 17:44
DX: I10 Essential (primary) hypertension (principal); R10.9 Unspecified abdominal pain; Z88.0 Allergy status to penicillin; Z88.1 Allergy status to other antibiotic agents; Z88.2 Allergy status to sulfonamides; Z91.040 Latex allergy status; Z91.048 Other nonmedicinal substance allergy status
CPT/HCPCS: 85025; 80048; 36415; 82565; 80076; 83690; 70450; 74177; 99283; Q9967